=== PATIENT | male | born 1980 | race African-American/Black ===

== ENCOUNTER 2016-12-23 02:53 | Emergency (ER) | payer SELFPAY ==
[~2016-12-23] VITALS: Ht 172.7 cm; Wt 63.0 kg
[~2016-12-23 02:53] MED LIST: DILA100C PO
[2016-12-23] MEDS ORDERED: SODIUM CHLOR 0.9% 1000 ML INJ 1,000 ML IV ONE (02:57)
[2016-12-23] MEDS ORDERED: PHENYTOIN SODIUM 100 MG CAP PO ONE (03:00)
[2016-12-23] MEDS ORDERED: SODIUM CHLORIDE 0.9% FLUSH 10 ML FLUSH IVF PRN (03:00)
[2016-12-23 03:02] VITALS: BP 98/54; PULSE 115; RESP 22; TEMP 98.2; O2SAT 98
[2016-12-23] MEDS ORDERED: DILA100C PO (03:02)
--- NOTE | 2016-12-23 03:02 | PD ---
HPI Chief Complaint: seizure Time Seen by Provider: 03:00 Travel History International Travel<30 days: No Contact w/Intl Traveler<30days: No Traveled to known affect area: No History of Present Illness HPI 36-year-old male with history of seizures, previously on Dilantin, was released from skilled nursing 2 weeks ago without Dilantin and has been without it for 2 weeks, presents to the ER today with a witnessed seizure. He was initially post ictal but is awake and oriented in the ER. He is refusing IVs and further evaluation at this time. He states that he has not been able to take his Dilantin because he does not have a prescription or primary care doctor. He denies any new issues. Modifying Factors: None Associated Signs & Symptoms: Seizure Risk Factors: History of seizure, not taking meds PFSH Past Medical History Asthma: Yes Anxiety: Yes Depression: Yes Diminished Hearing: No Seizures: Yes Social History Alcohol Use: No Tobacco Use: No Substance Use: No Allergies-Medications (Allergen,Severity, Reaction): Coded Allergies: Augmentin (Verified Allergy, Severe, Nausea/Vomiting, 12/23/16) Reported Meds & Prescriptions Reported Meds & Active Scripts Active No Active Prescriptions or Reported Medications Review of Systems Except as stated in HPI: all other systems reviewed are Neg Physical Exam Narrative GENERAL: Well-developed young after [place]i male patient currently in no acute distress. Awake and oriented 3. SKIN: Focused skin assessment warm/dry. HEAD: Atraumatic. Normocephalic. EYES: Pupils equal and round. No scleral icterus. No injection or drainage. ENT: No nasal bleeding or discharge. Mucous membranes pink and moist. NECK: Trachea midline. No JVD. CARDIOVASCULAR: Regular rate and rhythm. No murmur appreciated. RESPIRATORY: No accessory muscle use. Clear to auscultation. Breath sounds equal bilaterally. GASTROINTESTINAL: Abdomen soft, non-tender, nondistended. Hepatic and splenic margins not palpable. MUSCULOSKELETAL: No obvious deformities. No clubbing. No cyanosis. No edema. NEUROLOGICAL: Awake and alert. No obvious cranial nerve deficits. Motor grossly within normal limits. Normal speech. PSYCHIATRIC: Appropriate mood and affect; insight and judgment poor. Data Data Last Documented VS Vital Signs Date Time Temp Pulse Resp B/P Pulse Ox O2 Delivery O2 Flow Rate FiO2 12/23/16 03:02 98.2 115 22 98/54 98 Orders Complete Blood Count With Diff (12/23/16 02:57) Blood Glucose (12/23/16 02:57) Ecg Monitoring (12/23/16 02:57) Iv Access Insert/Monitor (12/23/16 02:57) Oximetry (12/23/16 02:57) Comprehensive Metabolic Panel (12/23/16 02:57) Sodium Chlor 0.9% 1000 Ml Inj (Ns 1000 M (12/23/16 02:57) Sodium Chloride 0.9% Flush (Ns Flush) (12/23/16 03:00) Phenytoin (Dilantin) (12/23/16 03:00) MDM Medical Decision Making Medical Screen Exam Complete: Yes Emergency Medical Condition: Yes Medical Record Reviewed: Yes Differential Diagnosis Breakthrough seizures versus metabolic issues Narrative Course I have talked to the patient and have notified the patient that I cannot rule out metabolic issues or other underlying processes is causing his seizures. However, I suspect that medication noncompliance could be part of the issue. I have offered to do lab work and give him a IV Dilantin load but he is refusing at this time. By mouth Dilantin was given in the ER. Prescription for further Dilantin was given as well. He should follow-up with primary care physician. Return for any further seizures or new issues as needed. The plan was discussed with him and he states understanding. Because I cannot completely rule out other issues and because patient refused further care, he will be leaving AGAINST MEDICAL ADVICE. AMA: The risks of leaving against medical advice without further evaluation treatment were discussed with the patient. These risks include cardiac dysfunction, cardiac dysrhythmia, possible heart attack, possible stroke or . The patient indicated understanding of these risks and appeared to have the capacity to make this decision. Diagnosis Primary Impression: Seizure Med/Other Pt SpecificInfo: Prescription(s) given Scripts No Active Prescriptions or Reported Meds Disposition: 07 AGAINST MEDICAL ADVICE Condition: Stable Ambreen Jones MD Dec 23, 2016 03:02
--- NOTE | 2016-12-23 16:10 | EKG ---
Date Performed: 12/23/2016 Time Performed: 02:59:16 PTAGE: 36 years EKG: SINUS TACHYCARDIA ATRIAL ABNORMALITY Compared to previous tracing, heart rate is faster and the atrial abnormality is somewhat more prominent. The early repolarization changes are less promine nt. ABNORMAL ECG PREVIOUS TRACING : 09/27/2013 18.40 DOCTOR: Sammy Brown Interpretating Date/Time 12/23/2016 16:09:11
== END 2016-12-23 03:52 | disposition left against medical advice (07) ==
LOC: NEPE 02:53
DX: R56.9 Unspecified convulsions (principal)
CPT/HCPCS: 93005; 99283

== ENCOUNTER 2017-02-28 08:36 | Emergency (ER) | payer SELFPAY ==
[~2017-02-28] VITALS: Ht 172.7 cm; Wt 69.0 kg
[2017-02-28 08:49] VITALS: BP 111/70; PULSE 98; RESP 16; TEMP 98
[2017-02-28] MEDS ORDERED: ACETAMINOPHEN 325 MG TAB PO ONE (09:30)
--- NOTE | 2017-02-28 09:36 | PD ---
HPI Chief Complaint: Seizure Time Seen by Provider: 08:59 Travel History International Travel<30 days: No Contact w/Intl Traveler<30days: No Traveled to known affect area: No History of Present Illness HPI 37-year-old male came to the emergency room with history of seizure. This was witnessed by his sister. Seizure was generalized tonic-clonic. Patient has history of seizure disorder and is on Dilantin. He was somewhat combative in the ambulance. When I went to see him he was awake and alert and complaining of some headache. Patient cannot remember his last episode of seizure prior to this. Currently he says he just wants something for the headache but doesn't want any other test to be done. He is in full capacity. He said he has called someone in the family to come and pick him up. [facility] Past Medical History Narrative Medical List of his past medical, surgical, social and family history is reviewed from the nursing note. Asthma: Yes Anxiety: Yes Depression: Yes Diminished Hearing: No Immunizations Current: Yes Seizures: Yes Social History Alcohol Use: No Tobacco Use: No Substance Use: No Allergies-Medications (Allergen,Severity, Reaction): Coded Allergies: amoxicillin (Unverified Allergy, Severe, Nausea/Vomiting, 01/08/17) clavulanic acid (Unverified Allergy, Severe, Nausea/Vomiting, 01/08/17) Comments List of his allergies reviewed from the nursing note. Reported Meds & Prescriptions Reported Meds & Active Scripts Active No Active Prescriptions or Reported Medications Narrative Medication List of his home medications reviewed from the nursing note. Review of Systems Except as stated in HPI: all other systems reviewed are Neg Physical Exam Narrative GENERAL: Awake, alert, mild distress SKIN: Focused skin assessment warm/dry. HEAD: Atraumatic. Normocephalic. EYES: Pupils equal and round. No scleral icterus. No injection or drainage. ENT: No nasal bleeding or discharge. Mucous membranes pink and moist. NECK: Trachea midline. No JVD. CARDIOVASCULAR: Regular rate and rhythm. No murmur appreciated. RESPIRATORY: No accessory muscle use. Clear to auscultation. Breath sounds equal bilaterally. GASTROINTESTINAL: Abdomen soft, non-tender, nondistended. Hepatic and splenic margins not palpable. MUSCULOSKELETAL: No obvious deformities. No clubbing. No cyanosis. No edema. NEUROLOGICAL: Awake and alert. No obvious cranial nerve deficits. Motor grossly within normal limits. Normal speech. PSYCHIATRIC: Appropriate mood and affect; insight and judgment normal. Data Data Last Documented VS Vital Signs Date Time Temp Pulse Resp B/P (MAP) Pulse Ox O2 Delivery O2 Flow Rate FiO2 02/28/17 11:14 98.2 91 17 110/71 (84) 99 02/28/17 10:20 Room Air Orders Orders Acetaminophen (Tylenol) (02/28/17 09:30) MDM Medical Decision Making Medical Screen Exam Complete: Yes Emergency Medical Condition: Yes Medical Record Reviewed: Yes Differential Diagnosis Seizure disorder, seizure Narrative Course 9:33 AM patient is in full capacity to make decisions for himself. He does not want Dilantin level to be done. He wants to go home. I've ordered Tylenol for headache. Patient will leave AMA. He understands the risk of leaving including repeat seizure if patient has low Dilantin level. Procedures EKG Prior to Arrival: No Diagnosis Primary Impression: Seizure Scripts No Active Prescriptions or Reported Meds Disposition: 07 AGAINST MEDICAL ADVICE Condition: Serious Altagracia Cordova MD Feb 28, 2017 09:36
[2017-02-28 10:20] VITALS: BP 110/71; PULSE 91; RESP 18; O2SAT 99
[2017-02-28 11:11] VITALS: RESP 17
[2017-02-28 11:14] VITALS: BP 110/71; TEMP 98.2
== END 2017-02-28 11:18 | disposition left against medical advice (07) ==
LOC: NEPC 08:36
DX: R56.9 Unspecified convulsions (principal); Z53.21 Procedure and treatment not carried out due to patient leaving prior to being seen by health care provider; R51 Headache; J45.909 Unspecified asthma, uncomplicated
CPT/HCPCS: 99283

== ENCOUNTER 2017-04-18 12:03 | Emergency (ER) | payer SELFPAY ==
[~2017-04-18] VITALS: Ht 177.8 cm; Wt 75.0 kg
[2017-04-18 12:05] VITALS: BP 130/80; PULSE 94; RESP 16; TEMP 97.7; O2SAT 98
[2017-04-18] MEDS ORDERED: IBUP-232 PO (12:59)
[2017-04-18] MEDS: KETOROLAC TROMETHAMINE 60 MG/2 ML (IM) VIAL IM ONE ×2 (13:00→13:05)
--- NOTE | 2017-04-18 13:00 | PD ---
HPI Chief Complaint: Injury Time Seen by Provider: 12:35 Travel History International Travel<30 days: No Contact w/Intl Traveler<30days: No Traveled to known affect area: No History of Present Illness HPI 37 yo M c/o R wrist pain for least 6 weeks. pt does not recall any injury specifically. 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 no numbness tingling. pain radiates up the arm. pain is worse than normal today. pronation and supination worsen pain. pt avoided pain medication. felipe bandage helped somewhat. pain constant and worse at night. PFSH Past Medical History Asthma: Yes Anxiety: Yes Depression: Yes Diminished Hearing: No Immunizations Current: Yes Seizures: Yes Social History Alcohol Use: No Tobacco Use: No Substance Use: No Allergies-Medications (Allergen,Severity, Reaction): Coded Allergies: amoxicillin (Unverified Allergy, Severe, Nausea/Vomiting, 04/18/17) clavulanic acid (Unverified Allergy, Severe, Nausea/Vomiting, 01/08/17) Reported Meds & Prescriptions Reported Meds & Active Scripts Active Ibuprofen 600 Mg Tab 600 Mg PO Q8H PRN 5 Days Review of Systems General / Constitutional: No: Fever Musculoskeletal: Positive: Pain, No: Weakness Physical Exam Narrative GENERAL: 37 yo M, WNWD, mild distress 2/2 pain SKIN: Warm and dry. HEAD: Normocephalic. EYES: No scleral icterus. No injection or drainage. NECK: Supple, trachea midline. No JVD or lymphadenopathy. CARDIOVASCULAR: Regular rate and rhythm without murmurs, gallops, or rubs. RESPIRATORY: Breath sounds equal bilaterally. No accessory muscle use. GASTROINTESTINAL: Abdomen soft, non-tender, nondistended. MUSCULOSKELETAL: 2+ radial artery pulse bilaterally. pronation supination normal bilaterally. wrist flexion/extension normal. TTP along the hypothenar eminance and along the ulna on the wrist side. the ROM at shoulder and elbow is normal bilaterally. BACK: Nontender without obvious deformity. No CVA tenderness. Data Data Last Documented VS Vital Signs Date Time Temp Pulse Resp B/P (MAP) Pulse Ox O2 Delivery O2 Flow Rate FiO2 04/18/17 13:19 04/18/17 12:05 97.7 94 16 98 VS reviewed Orders Orders Forearm (2vws) (04/18/17 12:52) Hand, Complete ([id number]) (04/18/17 12:52) Ketorolac Inj (Toradol Inj) (04/18/17 13:00) Ibuprofen (Motrin) (04/18/17 13:15) Ed Discharge Order (04/18/17 13:16) [facility] Medical Decision Making Medical Screen Exam Complete: Yes Emergency Medical Condition: Yes Medical Record Reviewed: Yes Differential Diagnosis tendonitis, fracture, dislocation, cellulitis, septic arthritis, osteomyelitis Narrative Course pt has tendonitis of the wrist RICE therapy Motrin return precautions discussed plain films normal Diagnosis Primary Impression: Tendonitis of wrist, right Med/Other Pt SpecificInfo: Prescription(s) given Scripts Ibuprofen (Ibuprofen) 600 Mg Tab 600 MG PO Q8H Y for PAIN for 5 Days, #15 TAB 0 Refills Prov: Fito Guerrero MD 04/18/17 Disposition: 01 DISCHARGE HOME Condition: Stable Fito Guerrero MD Apr 18, 2017 13:00
[2017-04-18] MEDS ORDERED: IBUPROFEN 600 MG TAB PO ONE (13:15)
--- NOTE | 2017-04-18 13:37 | RADRPT ---
EXAM DATE/TIME: 04/18/2017 13:02 [facility] COMPARISON: No previous studies available for comparison. INDICATIONS : Right distal forearm pain. No known injury. MEDICAL HISTORY : None. SURGICAL HISTORY : None. ENCOUNTER: Initial ACUITY: 2 weeks PAIN SCORE: 8/10 LOCATION: Right upper extremity FINDINGS: Two view examination of the right forearm demonstrates no evidence of fracture or dislocation. Bony mineralization is normal. The soft tissue structures are intact. CONCLUSION: Negative exam. Zach Patton MD on April 18, 2017 at 13:36 Board Certified Radiologist. This report was verified electronically.
--- NOTE | 2017-04-18 13:37 | RADRPT ---
EXAM DATE/TIME: 04/18/2017 13:00 [facility] COMPARISON: No previous studies available for comparison. INDICATIONS : Right hand pain. No known injury. MEDICAL HISTORY : None. SURGICAL HISTORY : None. ENCOUNTER: Initial ACUITY: 2 weeks PAIN SCORE: 8/10 LOCATION: Right upper extremity FINDINGS: Three view examination of the right hand demonstrates no soft tissue swelling, dislocation, or fractu re. The carpal bones appear intact. The interphalangeal and metacarpophalangeal joints are intact. Bony mineralization is normal. CONCLUSION: Negative exam. Zach Patton MD on April 18, 2017 at 13:35 Board Certified Radiologist. This report was verified electronically.
== END 2017-04-18 13:22 | disposition home or self-care (01) ==
LOC: NEPK 12:03
DX: M77.9 Enthesopathy, unspecified (principal); J45.909 Unspecified asthma, uncomplicated; F41.9 Anxiety disorder, unspecified; F32.9 Major depressive disorder, single episode, unspecified; R56.9 Unspecified convulsions; Z88.0 Allergy status to penicillin; Z88.8 Allergy status to other drugs, medicaments and biological substances
CPT/HCPCS: 73090; 73130; 96372; J1885